=== PATIENT | male | born 1955 | race Caucasian/White ===

== ENCOUNTER 2016-02-19 18:23 | Emergency (ER) | payer MEDICARE, MEDICAID ==
--- NOTE | 2016-02-19 20:48 | ER Document Report ---
ED General - General Chief Complaint: Facial Injury Stated Complaint: FALL Notes: Patient is a 60-year-old male with past medical history of prior CVA, encephalopathy, chronic alcoholism, who lives in an assisted living facility who presents after a mechanical fall today. States that he tripped and fell trying to get out of bed. He did strike the left side of his head but denies loss of consciousness, vomiting, or altered mental status. Does note a constant , dull pain to the left forehead. Nothing improves or worsens the pain. Patient has been seen in the emergency department on 3 prior occasions the last 4 months for similar falls. He denies any syncope associated with today's episode. He is not notified his primary care physician regarding today's fall. Denies any pain in any location at this time beyond his forehead. TRAVEL OUTSIDE OF THE [place] IN LAST 30 DAYS: No - Related Data Allergies/Adverse Reactions: No Known Allergies Allergy (Verified 06/16/15 20:23) Past Medical History - General Information source: Patient - Social History Smoking Status: Former Smoker Frequency of alcohol use: Occasional Drug Abuse: None Family History: Reviewed & Not Pertinent - Past Medical History Cardiac Medical History: Reports: Hx Hypercholesterolemia, Hx Hypertension Neurological Medical History: Reports: Hx Cerebrovascular Accident - Left-sided hypertensive intracranial hemorrhage on 10/15/2010 GI Medical History: Reports: Hx Gastroesophageal Reflux Disease Psychiatric Medical History: Reports: Hx Dementia Past Surgical History: Reports: Hx Abdominal Surgery - Hiatal hernia, Hx Vascular Surgery - Right carotid - Immunizations Hx Diphtheria, Pertussis, Tetanus Vaccination: Yes - utd Review of Systems - Review of Systems Notes: Constitutional: Negative for fever. Eyes: Negative for visual changes. ENT: Negative for facial injury Cardiovascular: Negative for chest injury. Respiratory: Negative for shortness of breath. Gastrointestinal: Negative for abdominal injury. Genitourinary: Negative for genital injury Musculoskeletal: Negative for back injury. Skin: Positive for laceration/abrasions. Neurological: Positive for head injury. Physical Exam - Vital signs Vitals: Temp Pulse Resp BP Pulse Ox 99.1 F 42 L 20 102/58 L 94 02/19/16 18:30 02/19/16 18:30 02/19/16 18:30 02/19/16 18:30 02/19/16 18:30 Interpretation: Bradycardic Notes: PHYSICAL EXAMINATION: GENERAL: Well-appearing, no acute distress. HEAD: Irregular flap type laceration over the left frontal scalp, normocephalic. EYES: Pupils equal round and reactive to light, extraocular movements intact, sclera anicteric, conjunctiva are normal. ENT: nares patent, no oral pharyngeal trauma. No hemotympanum, no Cheatham's sign , no raccoon eyes. NECK: No midline cervical spine tenderness. Patient able to move their head to 45 bilaterally without any discomfort. LUNGS: Breath sounds clear to auscultation bilaterally and equal. No wheezes rales or rhonchi. HEART: Regular rate and rhythm without murmurs. CHEST WALL: No ecchymosis over the chest wall. ABDOMEN: Soft, nontender, normoactive bowel sounds. No guarding, no rebound. No seatbelt sign. EXTREMITIES: Normal range of motion, no pitting or edema. No long bone deformities. BACK: No midline spinal tenderness, step-offs, or deformities. NEUROLOGICAL: Face symmetric. Tongue protrudes midline. Extraocular motions intact. Pupils are 2 mm and equally reactive. Slow speech which patient states is baseline. 5 out of 5 strength in both the distal and proximal upper and lower extremities bilaterally. Sensation is grossly intact throughout. PSYCH: Normal mood, normal affect. SKIN: Warm, Dry, normal turgor, laceration as above Course - Re-evaluation Re-evalutation: 02/19/16 22:55 Presentation of a well appearing elderly patient in no acute distress, vitals within normal limits after a mechanical mechanical fall. Patient denies a syncopal episode as the cause for today's fall. No focal neurologic deficits on exam, no evidence of basilar skull fracture on exam without evidence of hemotympanum, raccoon eyes, or periauricular hematoma. No papilledema. Patient is not on anticoagulation. GCS is 15. No loss of consciousness. No episodes of vomiting. However, patient is mildly intoxicated and therefore a CT of the head has been obtained which is negative for any acute intracranial bleed.. Patient denies any neck pain and is negative by Nexus criteria. CT of the neck was therefore not obtained. No indication for further imaging of the cervical spine. Patient has no focal deformities or limited range of motion in any joint space. Chest and abdominal exam are benign without any focal tenderness, shortness of breath, or bruising over the chest or abdominal wall. Patient has no flank tenderness. There is no obvious findings on trauma exam today and therefore no further imaging or evaluation will be obtained at this time. At this time will discharge with return precautions and follow-up recommendations. Verbal discharge instructions given a the bedside and opportunity for questions given. Medication warnings reviewed. Patient is in agreement with this plan and has verbalized understanding of return precautions and the need for primary care follow-up in the next 24-72 hours. - Vital Signs Vital signs: Temp Pulse Resp BP Pulse Ox 99.1 F 42 L 16 133/77 H 94 02/19/16 18:30 02/19/16 18:30 02/19/16 19:01 02/19/16 19:01 02/19/16 19:01 - Diagnostic Test Radiology reviewed: Image reviewed, Reports reviewed Radiology results interpreted by me: 02/19/16 22:56 CT the head: No acute intracranial bleed Procedures - Laceration/Wound Repair Left Face Wound length (cm): 2 Wound's Depth, Shape: Superficial Laceration pre-procedure: Sterile PPE donned Wound explored: Clean Wound Debrided: Minimal Wound Repaired With: Dermabond Post-procedure NV exam normal: Yes Complications: No Discharge - Discharge Clinical Impression: Head trauma Qualifiers: Encounter type: initial encounter Qualified Code(s): S09.90XA - Unspecified injury of head, initial encounter Forehead laceration Qualifiers: Encounter type: initial encounter Qualified Code(s): S01.81XA - Laceration without foreign body of other part of head, initial encounter Fall Qualifiers: Encounter type: initial encounter Qualified Code(s): W19.XXXA - Unspecified fall, initial encounter Condition: Good Disposition: HOME, SELF-CARE Additional Instructions: You have likely sustained a contusion (bruise) to your head. If you had a CT scan done, it did not show any evidence of serious injury or bleeding. Symptoms to expect from a concussion include nausea, mild to moderate headache, difficulty concentrating or sleeping, and mild lightheadedness. These symptoms should improve over the next few days to weeks. Return to the emergency department or follow-up with your primary care doctor if your symptoms are not improving over this time. Signs of a more serious head injury include vomiting , severe headache, excessive sleepiness or confusion, and weakness or numbness in your face, arms or legs. Return immediately to the Emergency Department if you experience any of these more concerning symptoms. Rest, avoid strenuous physical or mental activity, and avoid activities that could potentially result in another head injury until all your symptoms from this head injury are completely resolved for at least 2-3 weeks. If you participate in sports, get cleared by your doctor or business trainer before returning to play. You may take ibuprofen or acetaminophen over the counter according to label instructions for mild headache or scalp soreness. The wound has been closed with glue. Please do not pick at the at the wound. Do not cover it with any kind of antibiotic ointment as this can cause the glue to loosen. Return immediately if you develop spreading redness around the wound , pus from the wound, worsening pain, or a fever of >100.4. Keep the area clean and dry. Referrals: COURTNEY PATEL MD [Primary Care Provider] - Follow up in 3-5 days
[2016-02-19 22:56] VITALS: BP 164/80
== END 2016-02-19 22:57 | disposition home or self-care (01) ==
LOC: ER 18:23
DX: S01.81XA Laceration without foreign body of other part of head, initial encounter (principal); W19.XXXA Unspecified fall, initial encounter; Y93.89 Activity, other specified; Y92.092 Bedroom in other non-institutional residence as the place of occurrence of the external cause; F10.229 Alcohol dependence with intoxication, unspecified; I10 Essential (primary) hypertension; R00.1 Bradycardia, unspecified; Z87.891 Personal history of nicotine dependence
CPT/HCPCS: 70450; 99284

== ENCOUNTER 2016-09-29 12:53 | Emergency (ER) | payer MEDICARE, MEDICAID ==
[2016-09-29] MEDS ORDERED: LIDOCAINE 1% INJ-PF (10 MG/ML) 30 ML SDV INJ ONE (13:01)
--- NOTE | 2016-09-29 13:16 | ER Document Report ---
ED Fall - General Mode of Arrival: Medic Information source: Emergency Med Personnel TRAVEL OUTSIDE OF THE [place] IN LAST 30 DAYS: No - HPI Occurred: Just prior to arrival Location of injury/pain: Face, Head <WILMAR BORREGO - Last Filed: 09/29/16 13:22> <TOMA GUERRA - Last Filed: 09/29/16 15:26> - General Stated Complaint: FALL,HEAD INJURY Time Seen by Provider: 09/29/16 12:54 Notes: Patient is a 61 year old male who presents to the ED via EMS after a fall into the door jam. EMS states patient was getting out of bed when he fell into the door jam, their was blood on the door handle and a splintered and jagged area of wood on the door jam right where he hit. Patient has a history of alcoholism. Patients head hurts where he hit it. (WILMAR BORREGO) - Related data Allergies/Adverse Reactions: No Known Allergies Allergy (Verified 06/16/15 20:23) Past Medical History - General Information source: Patient - Social History Smoking Status: Unknown if Ever Smoked Family History: Reviewed & Not Pertinent - Past Medical History Cardiac Medical History: Reports: Hx Hypercholesterolemia, Hx Hypertension Neurological Medical History: Reports: Hx Cerebrovascular Accident - Left-sided hypertensive intracranial hemorrhage on 10/15/2010 GI Medical History: Reports: Hx Gastroesophageal Reflux Disease Psychiatric Medical History: Reports: Hx Dementia Past Surgical History: Reports: Hx Abdominal Surgery - Hiatal hernia, Hx Vascular Surgery - Right carotid - Immunizations Hx Diphtheria, Pertussis, Tetanus Vaccination: Yes - utd <WILMAR BORREGO - Last Filed: 09/29/16 13:22> Review of Systems - Review of Systems Constitutional: No symptoms reported EENT: See HPI, Other - head pain and laceration Cardiovascular: No symptoms reported Respiratory: No symptoms reported Gastrointestinal: No symptoms reported Genitourinary: No symptoms reported Male Genitourinary: No symptoms reported Musculoskeletal: No symptoms reported Skin: See HPI, Other - laceration to right head Hematologic/Lymphatic: No symptoms reported Neurological/Psychological: No symptoms reported <WILMAR BORREGO - Last Filed: 09/29/16 13:22> Physical Exam - General General appearance: Alert - HEENT Head: Normocephalic, Other - large laceration to right lateral supraorbital forehead Eyes: Normal Pupils: PERRL - Respiratory Respiratory status: No respiratory distress Breath sounds: Normal - Cardiovascular Rhythm: Regular Heart sounds: Normal auscultation Murmur: No - Abdominal Inspection: Normal Distension: No distension Bowel sounds: Normal Tenderness: Nontender - Back Back: Normal - Extremities General upper extremity: Other - chronic right side contractures, see skin irregularity exam General lower extremity: Other - chronic right side contractures. No: Edema - Neurological Cognition: Other - alert and oriented per baseline - Skin Skin Temperature: Warm Skin Moisture: Dry Skin Color: Normal Skin irregularity: other - large laceration on right lateral supraorbital forehead, skin tear that is bandaged on right elbow <WILMAR BORREGO - Last Filed: 09/29/16 13:22> Course <WILMAR BORREGO - Last Filed: 09/29/16 13:22> - EKG Interpretation by [facility] EKG shows normal: Christine, Intervals, QRS Complexes. abnormal: ST-T Waves - Minimal anterior ST elevation Rate: Bradycardia - 45 Rhythm: Other - Junctional escape rhythm When compared to previous EKG there are: No significant change <TOMA GUERRA - Last Filed: 09/29/16 15:26> - Re-evaluation Re-evalutation: 09/29/16 14:49 PROCEEDURE: The patient has a crush shearing type laceration to his right supraorbital lateral forehead region. It extends 5 cm from top to bottom with a 1 cm split coming off the lower half of the wound. There is also a 2 cm laceration in the crushed tissue running perpendicular and medially from the upper half but not adjoining the wound, The skin was prepped with Hibiclens. The wound was copiously irrigated with 30 mL's of normal saline. The skin was anesthetized with 7 mL's of 1% lidocaine, this was used because the hospital has been out of lidocaine with epinephrine for quite some time. The wound was explored with two thirds of the long axis of the wound going down through muscle. The subcutaneous wound area was approximated using #2 4-0 Vicryl sutures and this helped achieve hemostasis for the most part from this wound that had been pouring out blood when it was not compressed. The skin was then closed with a total of #19 5-0 nylon sutures. A sterile compression dressing was applied. (TOMA GUERRA) Discharge <WILMAR BORREGO - Last Filed: 09/29/16 13:22> <TOMA GUERRA - Last Filed: 09/29/16 15:26> - Discharge Clinical Impression: Frequent falls Laceration of right side of forehead with complication Qualifiers: Encounter type: initial encounter Qualified Code(s): S01.81XA - Laceration without foreign body of other part of head, initial encounter Condition: Stable Disposition: HOME, SELF-CARE Additional Instructions: Laceration Care: Your laceration has been sutured to keep the skin edges aligned during healing. The time of suture removal depends on the nature and location of your cut. Please follow the care instructions the doctor has outlined for you and return for further care, according to the schedule you've been given. Keep the wound and dressing clean. Unless you were told otherwise, you may shower daily, blotting the wound dry with a clean, unused towel. At other times, If the dressing gets wet or blood soaked, remove it and blot the wound dry, then reapply a new dressing. Unless you were instructed otherwise, dressings should be changed at least daily. If any signs of infection occur (swelling, redness, increasing tenderness, red streaks, tender lumps in the armpit or groin above the laceration, or fever) , see the doctor immediately. RETURN IN ONE WEEK FOR SUTURE REMOVAL. RETURN SOONER IF ANY SIGNS OF INFECTION. RETURN TO THE EMERGENCY ROOM IF ANY NEW OR WORSENING SYMPTOMS. Scribe Attestation: 09/29/16 15:26 I personally performed the services described in the documentation, reviewed and edited the documentation which was dictated to the scribe in my presence, and it accurately records my words and actions. (TOMA GUERRA) Scribe Documentation - Scribe Written by Deirdre:: deirdre Solano, 09/29/2016, 1311 acting as scribe for :: Josselyn <WILMAR BORREGO - Last Filed: 09/29/16 13:22>
[2016-09-29 16:03] VITALS: BP 167/91
--- NOTE | 2016-09-29 20:31 | EKG REPORT ---
SEVERITY:- BORDERLINE ECG - SINUS BRADYCARDIA MINIMAL ST ELEVATION, ANTERIOR LEADS : Confirmed by: Scott Luu MD 29-Sep-2016 20:29:57
--- NOTE | 2016-09-30 15:01 | RADIOLOGY REPORT (SQ) ---
EXAM DESCRIPTION: CT CERVICAL SPINE WITHOUT COMPLETED DATE/TIME: 09/29/2016, 1313 hours REASON FOR STUDY: Fall, injury, pain COMPARISON: CT cervical spine 01/20/2016 TECHNIQUE: The contrasted CT cervical spine was performed, reviewed at bone and soft tissue windows with sagittal and coronal reconstructions. RADIATION DOSE: 18.2 mGy LIMITATIONS: None FINDINGS: Grossly normal bone density. There is very mild convex leftward cervical curvature, and straightening of the cervical lordosis pro bably due to muscle spasm. No acute fracture is identified. No prevertebral soft tissue swelling. Calcified left carotid bifurcation, surgical clips at the righ t bifurcation probably post endarterectomy. Lung apices demonstrate biapical pleural-parenchymal scarring. There is degenerative disc change with mild left foraminal narrowing at C2-3. At C3-4 and C4-5 minimal posterior disc bulging is present without central stenosis. Moderate bilate ral foraminal narrowing from facet and uncovertebral hypertrophy. At C5-6 and C6-7, broad diffuse posterior disc bulge and bony spurring is present with mild central c anal stenosis and high-grade bilateral foraminal narrowing. IMPRESSION: No acute fracture or malalignment.
--- NOTE | 2016-09-30 15:02 | RADIOLOGY REPORT (SQ) ---
EXAM DESCRIPTION: CT HEAD WITHOUT COMPLETED DATE/TIME: 09/29/2016, 1311 hours REASON FOR STUDY: Palmar injury pain COMPARISON: [address] exams since 10/14/2010, most recently 02/19/2016 MRI brain 07/29/2015 TECHNIQUE: Noncontrast CT brain was performed, reviewed in brain, subdural, and bone windows. RADIATION DOSE: 64.6 mGy LIMITATIONS: Motion artifact FINDINGS: On images without motion artifact, there is no definite CT evidence of acute intracranial hemorrhage, acute large territory ischemic change, mass effect, or midline shift. There are multiple old infarcts in the bilateral basal ganglia and left thalamus, with moderate bifro ntal and biparietal chronic small vessel ischemic change. There is a soft tissue laceration over the right forehead. No retained radiopaque foreign body. No underlying skull fracture or intracranial hemorrhage. Opacified bilateral ethmoid air cells likely from pre-existing sinus disease. Mucous membrane thicke jaida bilateral maxillary sinuses. IMPRESSION: No skull fracture No acute intracranial changes. Right frontal scalp laceration
== END 2016-09-29 17:45 | disposition home or self-care (01) ==
LOC: ER 12:53
PROC: 0JQ10ZZ Repair Face Subcutaneous Tissue and Fascia, Open Approach (ICD-10-PCS; principal; 2016-09-29)
DX: S09.12XA Laceration of muscle and tendon of head, initial encounter (principal); S01.81XA Laceration without foreign body of other part of head, initial encounter; S51.011A Laceration without foreign body of right elbow, initial encounter; W22.8XXA Striking against or struck by other objects, initial encounter; Y93.89 Activity, other specified; Y92.193 Bedroom in other specified residential institution as the place of occurrence of the external cause; R51 Headache; I10 Essential (primary) hypertension; R29.6 Repeated falls
CPT/HCPCS: 70450; 72125; 93005; 93010; 99284

== ENCOUNTER 2017-03-21 03:38 | Emergency (ER) | payer MEDICARE, MEDICAID ==
[2017-03-21] MEDS ORDERED: NORMAL SALINE 1000 ML 1,000 ML IV PRN ×2 (03:48→03:49)
--- NOTE | 2017-03-21 04:31 | RADIOLOGY REPORT (SQ) ---
EXAM DESCRIPTION: CHEST SINGLE VIEW CLINICAL HISTORY: fever COMPARISON: 09/22/2015 FINDINGS: Single frontal view of the chest. Atherosclerotic calcification of the thoracic aorta. Heart is not enlarged. Leads overlie the chest. No consolidation, pneumothorax, or pleural effusion. No acute osseous abnormalities identified. Upper abdominal soft tissues are unremarkable. IMPRESSION: 1. No acute pulmonary process identified.
[2017-03-21 04:47] VITALS: BP 112/64
[2017-03-21 04:47] LABS: AMORPHOUS SEDIMENT,URINE TRACE /HPF; APPEARANCE,URINE SLIGHTLY-CLOUDY; BILIRUBIN,URINE NEGATIVE (NEGATIVE); GLUCOSE, URINE NEGATIVE (NEGATIVE); KETONES,URINE TRACE mg/dL (NEGATIVE); LEUKOCYTE ESTERASE,URINE NEGATIVE (NEGATIVE); NITRITE,URINE NEGATIVE (NEGATIVE); PROTEIN,URINE 30 mg/dL (NEGATIVE); URINE SPECIFIC GRAVITY 1.028
[2017-03-21 04:55] LABS: COLOR,URINE DARK YELLOW
[2017-03-21 04:58] LABS: VENOUS BLOOD BASE EXCESS 1.6 mmol/L; VENOUS BLOOD HCO3 25.3 mmol/L (20-32); VENOUS BLOOD PCO2 37.4 mmHg (35-63); VENOUS BLOOD PH 7.45 (7.30-7.42)
[2017-03-21 04:59] LABS: HEMATOCRIT 34.7 % (37.9-51.0); HEMOGLOBIN 12.1 g/dL (13.5-17.0); MEAN CORPUSCULAR HEMOGLOBIN 31.8 pg (27.0-33.4); MEAN CORPUSCULAR HGB CONC 34.7 g/dL (32.0-36.0); MEAN CORPUSCULAR VOLUME 92 fl (80-97); PLATELET COUNT 301 10^3/uL (150-450); RED BLOOD COUNT 3.79 10^6/uL (4.35-5.55); WHITE BLOOD COUNT 17.2 10^3/uL (4.0-10.5)
[2017-03-21 05:03] LABS: INTERNATIONAL RATION (INR) 1.11; PROTHROMBIN TIME 15.1 SEC (11.4-15.4)
[2017-03-21 05:27] LABS: ALANINE AMINOTRANSFERASE 34 U/L (21-72); ALBUMIN 3.7 g/dL (3.5-5.0); ALKALINE PHOSPHATASE 127 U/L (38-126); ANION GAP 9 (5-19); ASPARTATE AMINO TRANSFERASE 103 U/L (17-59); BILIRUBIN,DIRECT 0.5 mg/dL (0.0-0.4); BILIRUBIN,TOTAL 0.5 mg/dL (0.2-1.3); BLOOD UREA NITROGEN 25 mg/dL (7-20); CALCIUM 8.9 mg/dL (8.4-10.2); CARBON DIOXIDE 27 mmol/L (22-30); CHLORIDE 100 mmol/L (98-107); GLUCOSE 189 mg/dL (75-110); POTASSIUM 3.6 mmol/L (3.6-5.0); SODIUM 135.5 mmol/L (137-145); TOTAL PROTEIN 7.2 g/dL (6.3-8.2)
[2017-03-21 05:36] LABS: ABSOLUTE LYMPHOCYTES# (MANUAL) 1.2 10^3/uL (0.5-4.7); ABSOLUTE MONOCYTES # (MANUAL) 0.3 10^3/uL (0.1-1.4); ABSOLUTE NEUTROPHILS# (MANUAL) 15.7 10^3/uL (1.7-8.2); BAND NEUTROPHILS % (MANUAL) 5 % (3-5); BASOPHILS % (MANUAL) 0 % (0-2); EOSINOPHILS % (MANUAL) 0 % (0-6); LYMPHOCYTES % (MANUAL) 4 % (13-45); MONOCYTES % (MANUAL) 2 % (3-13); SEGMENTED NEUTROPHILS % (MAN) 86 % (42-78); TOTAL CELLS COUNTED 100
[2017-03-21 05:37] LABS: PLATELET COMMENT ADEQUATE; PLATELET LARGE PRESENT
[2017-03-21 05:38] LABS: RBC MORPHOLOGY COMMENT NORMO-CYTIC/CHROMIC; TOXIC GRANULATION 1+; TOXIC VACUOLATION PRESENT
[2017-03-21 05:58] LABS: A TYPE INFLUENZA AG NEGATIVE (NEGATIVE); B INFLUENZA AG NEGATIVE (NEGATIVE)
--- NOTE | 2017-03-21 07:05 | ER Document Report ---
ED General - General Chief Complaint: Fever Stated Complaint: FEVER Time Seen by Provider: 03/21/17 06:09 TRAVEL OUTSIDE OF THE [place] IN LAST 30 DAYS: No - HPI Patient complains to provider of: Fever Notes: Patient coming in for fever. Most of the HPI is obtained from nursing staff states EMS was called to the patient's assisted living apparently no Tylenol have been given by the4 fever ongoing for 3 days. Patient has a fever of 103 upon arrival assisted living facility patient did receive Tylenol here. Transported patient was reported to have baseline mental status per EMS. Upon my evaluation patient is sleeping arousable and will answer simple yes/no questions. Patient does not complain of any pain in his chest abdomen denies any diarrhea denies any shortness of breath or cough. Denies any pain in his chest. Denies any pain in his head or in his neck. 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 Patient was to be resting comfortably upon my evaluation - Related Data Allergies/Adverse Reactions: No Known Allergies Allergy (Verified 06/16/15 20:23) Past Medical History - Social History Smoking Status: Never Smoker Chew tobacco use (# tins/day): No Frequency of alcohol use: former Family History: Reviewed & Not Pertinent Patient has suicidal ideation: No Patient has homicidal ideation: No - Past Medical History Cardiac Medical History: Reports: Hx Hypercholesterolemia, Hx Hypertension Neurological Medical History: Reports: Hx Cerebrovascular Accident - Left-sided hypertensive intracranial hemorrhage on 10/15/2010 Renal/ Medical History: Denies: Hx Peritoneal Dialysis GI Medical History: Reports: Hx Gastroesophageal Reflux Disease Psychiatric Medical History: Reports: Hx Dementia Past Surgical History: Reports: Hx Abdominal Surgery - Hiatal hernia, Hx Vascular Surgery - Right carotid - Immunizations Hx Diphtheria, Pertussis, Tetanus Vaccination: Yes - utd Review of Systems - Review of Systems Constitutional: Fever EENT: No symptoms reported Cardiovascular: No symptoms reported Respiratory: No symptoms reported Gastrointestinal: No symptoms reported Genitourinary: No symptoms reported Male Genitourinary: No symptoms reported Musculoskeletal: No symptoms reported Skin: No symptoms reported Hematologic/Lymphatic: No symptoms reported Neurological/Psychological: No symptoms reported Physical Exam - Vital signs Vitals: Temp 102.0 F H 03/21/17 03:42 Interpretation: Normal - General General appearance: Appears well, Alert - HEENT Head: Normocephalic, Atraumatic Eyes: Normal Conjunctiva: Normal Cornea: Normal Extraocular movements intact: Yes Pupils: PERRL Ears: Normal External canal: Normal Tympanic membrane: Normal Sinus: Normal Nasal: Normal Neck: Normal Notes: Patient with poor dentition however no signs of overt dental abscess no gingival cellulitis. - Respiratory Respiratory status: No respiratory distress Chest status: Nontender Breath sounds: Normal Chest palpation: Normal - Cardiovascular Rhythm: Regular Heart sounds: Normal auscultation Murmur: No - Abdominal Inspection: Normal Distension: No distension Bowel sounds: Normal Tenderness: Nontender Organomegaly: No organomegaly - Rectal Notes: No signs of open wounds on examination of the buttocks. No signs of open wounds in the lower back. No cellulitic process - Genitourinary Inspection: Normal Tenderness: Nontender Cremasteric reflex: Normal Scrotum: Normal - Back Back: Normal, Nontender - Extremities General upper extremity: Normal inspection, Nontender, Normal color, Normal temperature, Other - No signs of open wounds infected wounds. No: Normal ROM - Condition traction of the right upper extremity with some excoriations no signs of skin infection. Left looks to be unaffected. General lower extremity: Normal inspection, Nontender, Normal color, Normal temperature, Other - No signs of decubitus or wounds.. No: Normal ROM - Contractions of the lower extremities. Patient able to move his feet pulses intact - Neurological Neuro grossly intact: Yes Cognition: Normal Lyles Coma Scale Eye Opening: Spontaneous Mary Coma Scale Verbal: Oriented Lyles Coma Scale Motor: Obeys Commands Mary Coma Scale Total: 15 Speech: Normal Sensory: Normal - Skin Skin Temperature: Warm Skin Moisture: Dry Skin Color: Normal Course - Re-evaluation Re-evalutation: 03/21/17 07:04 Laboratory studies showed a leukocytosis with left shift. Although the examination and chest x-ray urinalysis did not indicate source of infection. Patient is negative for flu. No diarrhea doubt this time any C. difficile. Blood cultures and urine cultures were sent. My plan is to discuss this with PCP I do not think at this time patient would need a CT scan of his abdomen is that his abdomen is soft nontender lactic acid is negative. Also think patient will need to undergo any lumbar puncture is that he is awake able to answer questions fever ongoing for the last 3 days. Denies any head pain neck pain. 03/21/17 08:[address] Bermudez at this time agrees with assessment workup. More likely possibly a viral illness blood culture and urine cultures have been sent. Patient's vital signs are otherwise stable patient's afebrile now. Reevaluation patient still answering simple questions and has no other complaints. Will discharge patient back to the [facility] house PCP agrees this plan will continue to follow cultures. - Vital Signs Vital signs: Temp Pulse Resp BP Pulse Ox 102.0 F H 18 112/64 94 03/21/17 03:42 03/21/17 07:00 03/21/17 04:01 03/21/17 07:00 - Laboratory Result Diagrams: 03/21/17 04:30 03/21/17 04:30 Laboratory results interpreted by me: 03/21/17 03/21/17 03/21/17 04:24 04:30 04:30 WBC 17.2 H RBC 3.79 L Hgb 12.1 L Hct 34.7 L Seg Neuts % (Manual) 86 H Lymphocytes % (Manual) 4 L Monocytes % (Manual) 2 L Abs Neuts (Manual) 15.7 H VBG pH Sodium 135.5 L BUN 25 H Glucose 189 H POC Glucose Direct Bilirubin 0.5 H AST 103 H Alkaline Phosphatase 127 H Urine Protein 30 H Urine Ketones TRACE H Urine Blood SMALL H Urine Urobilinogen 4.0 H 03/21/17 03/21/17 04:30 04:39 WBC RBC Hgb Hct Seg Neuts % (Manual) Lymphocytes % (Manual) Monocytes % (Manual) Abs Neuts (Manual) VBG pH 7.45 H Sodium BUN Glucose POC Glucose 179 H Direct Bilirubin AST Alkaline Phosphatase Urine Protein Urine Ketones Urine Blood Urine Urobilinogen Discharge - Discharge Clinical Impression: Fever Qualifiers: Fever type: post-vaccination Qualified Code(s): R50.83 - Postvaccination fever Instructions: Fever ([facility]) Additional Instructions: Please continue to give Tylenol and Motrin for fever control. Workup today did not show any signs of infection early UTI no pneumonia there is no lesions on the patient's body that would cause an infection there is no signs of cellulitis. Laboratory showed an elevation of white count which can also be caused by a viral illness. Patient was negative for influenza a and B however there are other viruses going around the community right now that we cannot test for. Recommending keep the patient well-hydrated with oral fluids. I discussed with PCP Dr. Bermudez agrees with discharge back to facility will continue to follow urine culture and blood cultures are performed here in ER. Patient should return to ER if symptoms worsen or follow-up with his PCP in the next 48 hours Prescriptions: Acetaminophen [Tylenol] 650 mg PO Q4 PRN #60 tablet PRN Reason:
--- NOTE | 2017-03-21 08:37 | EKG REPORT ---
SEVERITY:- ABNORMAL ECG - SINUS RHYTHM ATRIAL PREMATURE COMPLEXES NONSPECIFIC T ABNORMALITIES, LATERAL LEADS PROLONGED QT INTERVAL : Confirmed by: Jem Barros 21-Mar-2017 08:36:36
--- NOTE | 2017-03-22 01:26 | ER Document Report ---
ED Medical Screen (RME) - General Chief Complaint: Fever Stated Complaint: FEVER Time Seen by Provider: 03/21/17 06:09 Notes: I was handed culture results from this patient. Showed one bottle gram- positive cocci preliminary. I reviewed his chart. Concern for sepsis. Instructed charge nurse Claudia to call facility and bring the patient back to the ER. TRAVEL OUTSIDE OF THE [place] IN LAST 30 DAYS: No - Related Data Allergies/Adverse Reactions: No Known Allergies Allergy (Verified 06/16/15 20:23) Past Medical History - Social History Chew tobacco use (# tins/day): No Frequency of alcohol use: former - Past Medical History Cardiac Medical History: Reports: Hx Hypercholesterolemia, Hx Hypertension Neurological Medical History: Reports: Hx Cerebrovascular Accident - Left-sided hypertensive intracranial hemorrhage on 10/15/2010 Renal/ Medical History: Denies: Hx Peritoneal Dialysis GI Medical History: Reports: Hx Gastroesophageal Reflux Disease Psychiatric Medical History: Reports: Hx Dementia Past Surgical History: Reports: Hx Abdominal Surgery - Hiatal hernia, Hx Vascular Surgery - Right carotid - Immunizations Hx Diphtheria, Pertussis, Tetanus Vaccination: Yes - utd Physical Exam - Vital signs Vitals: Temp 102.0 F H 03/21/17 03:42 Course - Vital Signs Vital signs: Temp Pulse Resp BP Pulse Ox 102.0 F H 18 112/64 94 03/21/17 03:42 03/21/17 08:47 03/21/17 04:01 03/21/17 08:47 - Laboratory Result Diagrams: 03/21/17 04:30 03/21/17 04:30 Laboratory results interpreted by me: 03/21/17 03/21/17 03/21/17 04:24 04:30 04:30 WBC 17.2 H RBC 3.79 L Hgb 12.1 L Hct 34.7 L Seg Neuts % (Manual) 86 H Lymphocytes % (Manual) 4 L Monocytes % (Manual) 2 L Abs Neuts (Manual) 15.7 H VBG pH Sodium 135.5 L BUN 25 H Glucose 189 H POC Glucose Direct Bilirubin 0.5 H AST 103 H Alkaline Phosphatase 127 H Urine Protein 30 H Urine Ketones TRACE H Urine Blood SMALL H Urine Urobilinogen 4.0 H 03/21/17 03/21/17 04:30 04:39 WBC RBC Hgb Hct Seg Neuts % (Manual) Lymphocytes % (Manual) Monocytes % (Manual) Abs Neuts (Manual) VBG pH 7.45 H Sodium BUN Glucose POC Glucose 179 H Direct Bilirubin AST Alkaline Phosphatase Urine Protein Urine Ketones Urine Blood Urine Urobilinogen Doctor's Discharge - Discharge Clinical Impression: Fever Qualifiers: Fever type: post-vaccination Qualified Code(s): R50.83 - Postvaccination fever Condition: Fair Disposition: HOME-ASSISTED LIVING Instructions: Fever ([facility]) Additional Instructions: Please continue to give Tylenol and Motrin for fever control. Workup today did not show any signs of infection early UTI no pneumonia there is no lesions on the patient's body that would cause an infection there is no signs of cellulitis. Laboratory showed an elevation of white count which can also be caused by a viral illness. Patient was negative for influenza a and B however there are other viruses going around the community right now that we cannot test for. Recommending keep the patient well-hydrated with oral fluids. I discussed with PCP Dr. Bermudez agrees with discharge back to facility will continue to follow urine culture and blood cultures are performed here in ER. Patient should return to ER if symptoms worsen or follow-up with his PCP in the next 48 hours Prescriptions: Acetaminophen [Tylenol] 650 mg PO Q4 PRN #60 tablet PRN Reason:
== END 2017-03-21 09:40 | disposition home health service (06) ==
LOC: ER 03:38
DX: R50.83 Postvaccination fever (principal); D72.829 Elevated white blood cell count, unspecified; I10 Essential (primary) hypertension
CPT/HCPCS: 93005; 99284; 96360; 96361; 51702; 36415; 87040; 87086; 82962; 85025; 85610; 87077; 80053; 81001; 82803; 83605; 87804; 71045; 93010; J7030; 87186

== ENCOUNTER 2017-03-22 02:17 | Inpatient (IN) | payer MEDICARE, MEDICAID ==
[2017-03-22] MEDS ORDERED: NORMAL SALINE 1000 ML 1,000 ML IV ONE (02:22)
--- NOTE | 2017-03-22 02:25 | ER Document Report ---
ED General - General Stated Complaint: REEVALUATION FOR BLOOD CULTURES Time Seen by Provider: 03/22/17 02:21 Notes: This is a 61-year-old male [facility] resident with severe dementia who was seen yesterday in the ED for fever. Because I reviewed his culture results that he had positive gram-positive cocci on his blood culture. He was worked up extensively yesterday was noted to have leukocytosis but no lactic elevation. His flu was negative. His mental status was apparently at baseline at that point. I have very little information available from the facility but EMS told me that the patient's vitals are normal. He cannot give a history and is difficult to arouse. TRAVEL OUTSIDE OF THE [place] IN LAST 30 DAYS: No - Related Data Allergies/Adverse Reactions: No Known Allergies Allergy (Verified 06/16/15 20:23) Past Medical History - General Information source: [facility] Records - Social History Smoking Status: Unknown if Ever Smoked Family History: Reviewed & Not Pertinent - Past Medical History Cardiac Medical History: Reports: Hx Hypercholesterolemia, Hx Hypertension Neurological Medical History: Reports: Hx Cerebrovascular Accident - Left-sided hypertensive intracranial hemorrhage on 10/15/2010 Renal/ Medical History: Denies: Hx Peritoneal Dialysis GI Medical History: Reports: Hx Gastroesophageal Reflux Disease Psychiatric Medical History: Reports: Hx Dementia Past Surgical History: Reports: Hx Abdominal Surgery - Hiatal hernia, Hx Vascular Surgery - Right carotid - Immunizations Hx Diphtheria, Pertussis, Tetanus Vaccination: Yes - utd Review of Systems - Review of Systems Notes: REVIEW OF SYSTEMS Not obtained secondary to patient dementia PHYSICAL EXAMINATION General: Somnolent, appears poorly groomed Head: Atraumatic, normocephalic ENT: Mouth normal, oropharynx very dry, poor dentition, n Eyes: Bilateral eye exudates without conjunctival injection Neck: No JVD, supple, no guarding CVS: Normal rate, regular rhythm, no murmurs Resp: No resp distress, equal and normal breath sounds bilaterally GI: Nondistended, soft, no tenderness to palpation, no rebound or guarding Ext: No deformities, no edema, normal range of motion in upper and lower ext Back: No CVA or midline TTP Skin: No rash, warm Lymphatic: No lymphadeopathy noted Neuro: Somnolent. Opens eyes to voice. Nonverbal. Bilateral contractures not following commands. -: Yes ROS unobtainable due to patient's medical condition Course - Re-evaluation Re-evalutation: 03/22/17 02:24 Frail demented 61-year-old male presents after a visit for fever during which she was diagnosed with viral illness. Positive blood culture. Appears quite dehydrated. Differential includes sepsis. Source was not identified yesterday. Has no indwelling lines. We will repeat cultures and lactic and labs. We will give empiric IV fluid. 03/22/17 04:46 Lactic normal. Leukocytosis slightly improved. Patient slightly improved with IV fluid although there is no acute kidney injury on his labs. Spoke with Dr. Patel he maintains that this is probably contamination but still asked me to give antibiotics and will admit the patient to [facility] overnight.. - Laboratory Result Diagrams: 03/22/17 02:35 03/22/17 04:05 Laboratory results interpreted by me: 03/22/17 03/22/17 02:35 04:05 WBC 15.1 H RBC 3.64 L Hgb 11.7 L Hct 33.4 L Seg Neutrophils % 84.2 H Lymphocytes % 10.4 L Absolute Neutrophils 12.8 H Glucose 120 H Critical Care Note - Critical Care Note Total time excluding time spent on procedures (mins): 32 Comments: The above patient is critically ill. Not including procedures, but including direct re-evaluations, speaking with patient and/or consultants, interpreting results, and documenting, I spent the total amount of minute listed listed above on critical care time Discharge - Discharge Clinical Impression: Blood culture positive for microorganism Condition: Good Disposition: ADMITTED INPATIENT Admitting Provider: Hospitalist Unit Admitted: Medical Floor Referrals: COURTNEY PATEL MD [Primary Care Provider] - Follow up as needed
[2017-03-22] MEDS ORDERED: LIDOCAINE 1%/EPINEPHRINE INJ 20 ML VIAL INJ ONE (02:28)
--- NOTE | 2017-03-22 02:44 | RADIOLOGY REPORT (SQ) ---
EXAM DESCRIPTION: CHEST SINGLE VIEW CLINICAL HISTORY: ams COMPARISON: 03/21/2017 FINDINGS: Single frontal view of the chest. Atherosclerotic calcification and tortuosity of the thoracic aorta. Heart is not enlarged. No consolidation, pneumothorax, or pleural effusion. No acute osseous abnormality. Upper abdominal soft tissues are unremarkable. IMPRESSION: 1. No acute pulmonary process identified.
[2017-03-22 03:10] LABS: ABSOLUTE BASOPHILS # (AUTO) 0.1 10^3/uL (0.0-0.2); ABSOLUTE LYMPHOCYTES (AUTO) 1.6 10^3/uL (0.5-4.7); ABSOLUTE MONOCYTES (AUTO) 0.8 10^3/uL (0.1-1.4); ABSOLUTE NEUT (AUTO) 12.8 10^3/uL (1.7-8.2); BASOPHILS % (AUTO) 0.4 % (0-2); HEMATOCRIT 33.4 % (37.9-51.0); HEMOGLOBIN 11.7 g/dL (13.5-17.0); LYMPHOCYTES % (AUTO) 10.4 % (13-45); MEAN CORPUSCULAR HEMOGLOBIN 32.1 pg (27.0-33.4); MEAN CORPUSCULAR HGB CONC 34.9 g/dL (32.0-36.0); MEAN CORPUSCULAR VOLUME 92 fl (80-97); PLATELET COUNT 358 10^3/uL (150-450); RED BLOOD COUNT 3.64 10^6/uL (4.35-5.55); RED CELL DISTRIBUTION WIDTH 13.4 % (11.5-14.0); SEGMENTED NEUTROPHILS % (AUTO) 84.2 % (42-78); TOTAL CELLS COUNTED % (AUTO) 100 %; WHITE BLOOD COUNT 15.1 10^3/uL (4.0-10.5)
[2017-03-22 04:29] LABS: ANION GAP 9 (5-19); BLOOD UREA NITROGEN 17 mg/dL (7-20); CALCIUM 8.6 mg/dL (8.4-10.2); CARBON DIOXIDE 27 mmol/L (22-30); CHLORIDE 105 mmol/L (98-107); GLUCOSE 120 mg/dL (75-110); POTASSIUM 4.2 mmol/L (3.6-5.0); SODIUM 140.5 mmol/L (137-145)
[2017-03-22] MEDS ORDERED: VANCOMYCIN HCL INJ 1000 MG VIAL IV ONE (04:47)
[2017-03-22] MEDS ORDERED: CEFEPIME 1 GM/D5W RTU 1 GM/50 ML RTUPB IV SCH (05:00)
[2017-03-22] MEDS ORDERED: CEFEPIME 1 GM/D5W RTU 1 GM/50 ML RTUPB IV ONE (05:17)
[2017-03-22] MEDS: NORMAL SALINE 1000 ML 1,000 ML IV PRN ×2 (09:14→22:10)
--- NOTE | 2017-03-22 09:16 | EKG REPORT ---
SEVERITY:- ABNORMAL ECG - SINUS RHYTHM MINIMAL ST ELEVATION, ANTERIOR LEADS : Confirmed by: Jem Barros 22-Mar-2017 09:15:32
[2017-03-22 09:34] LABS: APPEARANCE,URINE SLIGHTLY-CLOUDY; BILIRUBIN,URINE NEGATIVE (NEGATIVE); CALCIUM OXALATE CRYSTALS,URINE RARE /HPF; COLOR,URINE YELLOW; GLUCOSE, URINE NEGATIVE (NEGATIVE); KETONES,URINE NEGATIVE (NEGATIVE); LEUKOCYTE ESTERASE,URINE NEGATIVE (NEGATIVE); NITRITE,URINE NEGATIVE (NEGATIVE); PROTEIN,URINE 30 mg/dL (NEGATIVE); URINE SPECIFIC GRAVITY 1.024
[2017-03-22] MEDS: ENOXAPARIN SODIUM INJ 40 MG/0.4 ML DISP.SYRIN SUBCUT SCH (09:45)
[2017-03-22 10:02] LABS: FREE T4 (FREE THYROXINE) 1.54 ng/dL (0.78-2.19)
[2017-03-22 10:16] LABS: THYROID STIMULATING HORMONE 1.38 uIU/mL (0.47-4.68)
[2017-03-22 11:40] LABS: CREATINE KINASE MB 5.94 ng/mL (<4.55)
[2017-03-22 11:43] LABS: TROPONIN I 1.81 ng/mL
[2017-03-22] MEDS: AMPICILLIN SODIUM/SULBACTAM NA 3 GM in NORMAL SALINE 100 ML IV SCH ×2 (12:19→18:25)
[2017-03-22 15:41] LABS: CREATINE KINASE MB 5.72 ng/mL (<4.55)
[2017-03-22 15:50] LABS: TROPONIN I 1.7 ng/mL
--- NOTE | 2017-03-22 18:30 | PDOC H&P ---
History of Present Illness Admission Date/PCP: 03/22/17 04:55 COURTNEY PATEL MD History of Present Illness: CHAPO MCKEON JR is a 61 year old male, resident of assisted living facility, yesterday, he was transferred to the emergency room from the assisted living facility for evaluation of 3 day history of fever, in the ER he was evaluated he was found to have leukocytosis but there was no localizing source of infection that was apparent but he had a blood culture drawn yesterday when he came to the emergency room for evaluation. The emergency room physician discussed the case with me yesterday and we are agreed that he could be discharged back to the facility and that he come to the office for follow-up or if there is a change in his condition he will be admitted to the hospital for management .He was called from the assisted living facility today because of positive blood culture, no specific organism is yet identified. When I saw patient he has cellulitis of the right upper extremities very extensive up to the neck. Patient is a very poor historian he has CVA with residual dysphasia and right-sided weakness, the blood work also suggests rhabdomyolysis with severely elevated CPK. History taking is a challenge with this patient because of the expressive dysphasia he does not communicate effectively he does not answer questions appropriately. Patient looks very unkempt, with very poor dentition ,he smells of urine, he is probably urinary incontinence he has adult brief in place. Past Medical History Cardiac Medical History: Reports: Hyperlipidema, Hypertension Neurological Medical History: Reports: Ischemic CVA, Other - Right-sided hemiplegia GI Medical History: Reports: Gastroesophageal Reflux Disease Psychiatric Medical History: Reports: Dementia, Depression Past Surgical History Past Surgical History: Reports: Vascular Surgery - Right carotid Social History Smoking Status: Current Every Day Smoker Frequency of Alcohol Use: Heavy Hx Recreational Drug Use: No Drugs: None Hx Prescription Drug Abuse: No Family History Family History: Reviewed & Not Pertinent Parental Family History Reviewed: Yes Children Family History Reviewed: Yes Sibling(s) Family History Reviewed.: Yes Medication/Allergy Home Medications: Acetaminophen [Tylenol 325 mg Tablet] 650 mg PO Q4HP PRN 03/22/17 Acetaminophen [Tylenol 325 mg Tablet] 650 mg PO Q8 03/22/17 Aspirin [Ecotrin 325 mg EC Tablet] 325 mg PO DAILY 03/22/17 Cyanocobalamin (Vitamin B-12) [Vitamin B-12 1000 mcg Tablet] 1,000 mcg PO DAILY 03/22/17 Fluoxetine HCl [Prozac 20 mg Capsule] 20 mg PO DAILY 03/22/17 Folic Acid [Folvite 1 mg Tablet] 1 mg PO DAILY 03/22/17 Gabapentin [Neurontin] 600 mg PO Q8 03/22/17 Haloperidol [Haldol 2 mg Tablet] 2 mg PO Q12 03/22/17 Lorazepam [Ativan 1 mg Tablet] 1 mg PO Q12 03/22/17 Melatonin [Melatonin 3 mg Tablet] 3 mg PO QHS 03/22/17 Metoprolol Tartrate [Lopressor 25 mg Tablet] 25 mg PO Q12 03/22/17 Multivitamin [Tab-A-Elizabeth (Multiple Vitamin) Tablet] 1 tab PO DAILY 03/22/17 Nitroglycerin [Nitrostat] 0.4 mg PO Q5MP PRN 03/22/17 Pantoprazole Sodium [Protonix] 20 mg PO DAILY 03/22/17 Simvastatin [Zocor 20 mg Tablet] 20 mg PO QHS 03/22/17 Thiamine HCl [Thiamine 100 mg Tablet] 100 mg PO DAILY 03/22/17 Allergies/Adverse Reactions: No Known Allergies Allergy (Verified 06/16/15 20:23) Review of Systems ROS unobtainable: Other - Expressive dysphasia Physical Exam Vital Signs: Temp Pulse Resp BP Pulse Ox 98.9 F 75 17 150/92 H 94 03/22/17 10:00 03/22/17 09:21 03/22/17 15:01 03/22/17 15:01 03/22/17 15:01 Intake & Output 03/21/17 03/22/17 03/23/17 06:59 06:59 06:59 Output Total 50 Balance -50 Weight 60.6 kg General appearance: PRESENT: no acute distress Eye exam: PRESENT: PERRLA Mouth exam: PRESENT: other - Poor oral dentition Respiratory exam: PRESENT: decreased breath sounds Cardiovascular exam: PRESENT: irregular rhythm, +S1, +S2 GI/Abdominal exam: PRESENT: soft Extremities exam: PRESENT: other - Erythema of the right upper extremities involving the upper arm up to the neck consistent with cellulitis Neurological exam: PRESENT: alert, other - Right sided hemiplegia Results Laboratory Results: 03/22/17 03/22/17 03/22/17 09:04 09:04 09:04 Ammonia < 8.7 L Lipase 70.9 TSH 1.38 Free T4 1.54 Urine Color Urine Appearance Urine pH Ur Specific [place] Urine Protein Urine Glucose (UA) Urine Ketones Urine Blood Urine Nitrite Ur Leukocyte Esterase Urine WBC (Auto) Urine RBC (Auto) 03/22/17 09:14 Ammonia Lipase TSH Free T4 Urine Color YELLOW Urine Appearance SLIGHTLY-CLOUDY Urine pH 5.0 Ur Specific [place] 1.024 Urine Protein 30 H Urine Glucose (UA) NEGATIVE Urine Ketones NEGATIVE Urine Blood SMALL H Urine Nitrite NEGATIVE Ur Leukocyte Esterase NEGATIVE Urine WBC (Auto) 2 Urine RBC (Auto) 3 03/22/17 03/22/17 03/22/17 09:04 09:04 10:50 Creatine Kinase 1023 H CK-MB (CK-2) Cancelled 5.94 H Troponin I Cancelled 1.810 03/22/17 03/22/17 15:00 15:00 Creatine Kinase 760 H CK-MB (CK-2) 5.72 H Troponin I 1.700 Impressions: Chest X-Ray 03/22/17 02:25 IMPRESSION: 1. No acute pulmonary process identified. Assessment & Plan - Diagnosis (1) Cellulitis of right upper extremity Is this a current diagnosis for this admission?: Yes Plan: Patient admitted to be treated with IV antibiotic (2) Rhabdomyolysis Qualifiers: Rhabdomyolysis type: traumatic Encounter type: initial encounter Qualified Code(s): T79.6XXA - Traumatic ischemia of muscle, initial encounter Is this a current diagnosis for this admission?: Yes Plan: Patient probably fell, he has a history of CVA with right-sided weakness history of previous fall (3) Hemiparesis affecting right side as late effect of cerebrovascular accident (CVA) Is this a current diagnosis for this admission?: Yes
[2017-03-22] MEDS ORDERED: ACETAMINOPHEN 325 MG TABLET PO PRN (18:31)
[2017-03-22] MEDS ORDERED: (PENDING PHARMACY ID) (Pantoprazole Sodium [Protonix] 20 MG) PO SCH (18:45)
--- NOTE | 2017-03-22 21:30 | EKG REPORT ---
SEVERITY:- NORMAL ECG - SINUS RHYTHM : Confirmed by: Jem Barros 22-Mar-2017 21:29:40
--- NOTE | 2017-03-22 21:31 | EKG REPORT ---
SEVERITY:- ABNORMAL ECG - SINUS RHYTHM MINIMAL ST DEPRESSION, LATERAL LEADS : Confirmed by: Jem Barros 22-Mar-2017 21:30:05
[2017-03-22 21:48] LABS: CREATINE KINASE MB 4.92 ng/mL (<4.55)
[2017-03-22] MEDS: SIMVASTATIN 10 MG TABLET PO SCH (21:49)
[2017-03-22] MEDS: HALOPERIDOL 2 MG TABLET PO SCH (21:49)
[2017-03-22] MEDS: LORAZEPAM 1 MG TABLET PO SCH (21:49)
[2017-03-22] MEDS: MELATONIN 3 MG TABLET PO SCH (21:49)
[2017-03-22] MEDS: ACETAMINOPHEN 325 MG TABLET PO SCH (21:50)
[2017-03-22] MEDS: GABAPENTIN 300 MG CAPSULE PO SCH (21:50)
[2017-03-22] MEDS: METOPROLOL TARTRATE 25 MG TABLET PO SCH (21:50)
[2017-03-22 22:01] LABS: TROPONIN I 1.25 ng/mL
[2017-03-23] MEDS: AMPICILLIN SODIUM/SULBACTAM NA 3 GM in NORMAL SALINE 100 ML IV SCH ×5 (00:03→23:15)
[2017-03-23] MEDS: ACETAMINOPHEN 325 MG TABLET PO SCH ×3 (05:54→21:56)
[2017-03-23] MEDS: LANSOPRAZOLE 15 MG TAB.RAP.DR PO SCH (05:55)
[2017-03-23] MEDS: GABAPENTIN 300 MG CAPSULE PO SCH ×3 (05:55→21:56)
[2017-03-23 07:58] LABS: ABSOLUTE LYMPHOCYTES (AUTO) 1.3 10^3/uL (0.5-4.7); ABSOLUTE MONOCYTES (AUTO) 0.6 10^3/uL (0.1-1.4); ABSOLUTE NEUT (AUTO) 10.2 10^3/uL (1.7-8.2); BASOPHILS % (AUTO) 0.2 % (0-2); EOSINOPHILS % (AUTO) 0.4 % (0-6); HEMATOCRIT 31.5 % (37.9-51.0); HEMOGLOBIN 10.6 g/dL (13.5-17.0); LYMPHOCYTES % (AUTO) 10.7 % (13-45); MEAN CORPUSCULAR HEMOGLOBIN 31.3 pg (27.0-33.4); MEAN CORPUSCULAR HGB CONC 33.8 g/dL (32.0-36.0); MEAN CORPUSCULAR VOLUME 93 fl (80-97); MONOCYTES % (AUTO) 4.6 % (3-13); PLATELET COUNT 303 10^3/uL (150-450); RED CELL DISTRIBUTION WIDTH 12.9 % (11.5-14.0); SEGMENTED NEUTROPHILS % (AUTO) 84.1 % (42-78); TOTAL CELLS COUNTED % (AUTO) 100 %; WHITE BLOOD COUNT 12.1 10^3/uL (4.0-10.5)
[2017-03-23 08:25] LABS: ALANINE AMINOTRANSFERASE 40 U/L (21-72); ALBUMIN 2.5 g/dL (3.5-5.0); ALKALINE PHOSPHATASE 97 U/L (38-126); ANION GAP 9 (5-19); ASPARTATE AMINO TRANSFERASE 58 U/L (17-59); BILIRUBIN,DIRECT 0.1 mg/dL (0.0-0.4); BILIRUBIN,TOTAL 0.4 mg/dL (0.2-1.3); BLOOD UREA NITROGEN 10 mg/dL (7-20); CALCIUM 8.1 mg/dL (8.4-10.2); CARBON DIOXIDE 24 mmol/L (22-30); CHLORIDE 105 mmol/L (98-107); GLUCOSE 80 mg/dL (75-110); POTASSIUM 3.6 mmol/L (3.6-5.0); SODIUM 138.4 mmol/L (137-145); TOTAL PROTEIN 4.9 g/dL (6.3-8.2)
[2017-03-23] MEDS: MULTIVITAMIN TABLET PO SCH (10:15)
[2017-03-23] MEDS: CYANOCOBALAMIN (VITAMIN B-12) 1,000 MCG TABLET PO SCH (10:16)
[2017-03-23] MEDS: HALOPERIDOL 2 MG TABLET PO SCH ×2 (10:16→21:56)
[2017-03-23] MEDS: FLUOXETINE HCL 20 MG CAPSULE PO SCH (10:17)
[2017-03-23] MEDS: ENOXAPARIN SODIUM INJ 40 MG/0.4 ML DISP.SYRIN SUBCUT SCH (10:17)
[2017-03-23] MEDS: FOLIC ACID 1 MG TABLET PO SCH (10:17)
[2017-03-23] MEDS: ASPIRIN 325 MG TABLET, ENT COATED PO SCH (10:17)
[2017-03-23] MEDS: THIAMINE HCL 100 MG TABLET PO SCH (10:18)
[2017-03-23] MEDS: LORAZEPAM 1 MG TABLET PO SCH ×2 (13:23→21:56)
[2017-03-23] MEDS: METOPROLOL TARTRATE 25 MG TABLET PO SCH ×2 (13:23→21:56)
[2017-03-23] MEDS: MELATONIN 3 MG TABLET PO SCH (21:56)
[2017-03-23] MEDS: SIMVASTATIN 10 MG TABLET PO SCH (21:56)
--- NOTE | 2017-03-23 22:11 | PDOC PROGRESS REPORT ---
Subjective Progress Note for:: 03/23/17 Subjective:: Patient admitted for management of rhabdomyolysis, cellulitis of the right upper extremities Reason For Visit: RHABDOMYOLYSIS,POSITIVE BLOOD CULTURE,ELEVATED Physical Exam Vital Signs: Temp Pulse Resp BP Pulse Ox 97.7 F 57 L 12 127/56 H 97 03/23/17 15:07 03/23/17 19:00 03/23/17 15:07 03/23/17 15:07 03/23/17 15:07 Intake & Output 03/22/17 03/23/17 03/24/17 06:59 06:59 06:59 Intake Total 60 300 Output Total 50 Balance 10 300 Weight 59 kg General appearance: PRESENT: no acute distress Eye exam: PRESENT: PERRLA Respiratory exam: PRESENT: clear to auscultation sayra Cardiovascular exam: PRESENT: +S1, +S2 GI/Abdominal exam: PRESENT: soft Neurological exam: PRESENT: alert, motor sensory deficit Skin exam: PRESENT: erythema Results Laboratory Results: 03/23/17 06:59 03/23/17 06:59 03/23/17 03/23/17 06:59 06:59 WBC 12.1 H RBC 3.40 L Hgb 10.6 L Hct 31.5 L MCV 93 MCH 31.3 MCHC 33.8 RDW 12.9 Plt Count 303 Seg Neutrophils % 84.1 H Lymphocytes % 10.7 L Monocytes % 4.6 Eosinophils % 0.4 Basophils % 0.2 Absolute Neutrophils 10.2 H Absolute Lymphocytes 1.3 Absolute Monocytes 0.6 Absolute Eosinophils 0.0 Absolute Basophils 0.0 Sodium 138.4 Potassium 3.6 Chloride 105 Carbon Dioxide 24 Anion Gap 9 BUN 10 Creatinine 0.50 L Est GFR ( Amer) > 60 Est GFR (Non-Af Amer) > 60 Glucose 80 Calcium 8.1 L Total Bilirubin 0.4 AST 58 ALT 40 Alkaline Phosphatase 97 Total Protein 4.9 L Albumin 2.5 L 03/22/17 03/22/17 03/22/17 09:04 09:04 10:50 Creatine Kinase 1023 H CK-MB (CK-2) Cancelled 5.94 H Troponin I Cancelled 1.810 03/22/17 03/22/17 03/22/17 15:00 15:00 20:43 Creatine Kinase 760 H 628 H CK-MB (CK-2) 5.72 H Troponin I 1.700 02/07/18 20:43 Creatine Kinase CK-MB (CK-2) 4.92 H Troponin I 1.250 Impressions: Chest X-Ray 03/22/17 02:25 IMPRESSION: 1. No acute pulmonary process identified. Assessment & Plan - Diagnosis (1) Cellulitis of right upper extremity Is this a current diagnosis for this admission?: Yes (2) Rhabdomyolysis Qualifiers: Rhabdomyolysis type: traumatic Encounter type: initial encounter Qualified Code(s): T79.6XXA - Traumatic ischemia of muscle, initial encounter Is this a current diagnosis for this admission?: Yes (3) Hemiparesis affecting right side as late effect of cerebrovascular accident (CVA) Is this a current diagnosis for this admission?: Yes - Plan Summary Plan Summary: Continue IV antibiotic and hydration
[2017-03-24 04:17] LABS: ABSOLUTE EOSINOPHILS # (AUTO) 0.2 10^3/uL (0.0-0.6); ABSOLUTE LYMPHOCYTES (AUTO) 1.7 10^3/uL (0.5-4.7); ABSOLUTE MONOCYTES (AUTO) 0.5 10^3/uL (0.1-1.4); ABSOLUTE NEUT (AUTO) 6.3 10^3/uL (1.7-8.2); BASOPHILS % (AUTO) 0.4 % (0-2); EOSINOPHILS % (AUTO) 2.7 % (0-6); HEMATOCRIT 32.6 % (37.9-51.0); HEMOGLOBIN 11.2 g/dL (13.5-17.0); MEAN CORPUSCULAR HEMOGLOBIN 31.9 pg (27.0-33.4); MEAN CORPUSCULAR HGB CONC 34.3 g/dL (32.0-36.0); MEAN CORPUSCULAR VOLUME 93 fl (80-97); MONOCYTES % (AUTO) 5.6 % (3-13); PLATELET COUNT 314 10^3/uL (150-450); RED BLOOD COUNT 3.51 10^6/uL (4.35-5.55); RED CELL DISTRIBUTION WIDTH 13.2 % (11.5-14.0); SEGMENTED NEUTROPHILS % (AUTO) 72.3 % (42-78); TOTAL CELLS COUNTED % (AUTO) 100 %; WHITE BLOOD COUNT 8.7 10^3/uL (4.0-10.5)
[2017-03-24 04:31] LABS: ALANINE AMINOTRANSFERASE 42 U/L (21-72); ALBUMIN 2.6 g/dL (3.5-5.0); ALKALINE PHOSPHATASE 99 U/L (38-126); ANION GAP 9 (5-19); ASPARTATE AMINO TRANSFERASE 45 U/L (17-59); BILIRUBIN,DIRECT 0.1 mg/dL (0.0-0.4); BILIRUBIN,TOTAL 0.2 mg/dL (0.2-1.3); BLOOD UREA NITROGEN 8 mg/dL (7-20); CALCIUM 8.2 mg/dL (8.4-10.2); CARBON DIOXIDE 27 mmol/L (22-30); CHLORIDE 105 mmol/L (98-107); GLUCOSE 89 mg/dL (75-110); POTASSIUM 3.4 mmol/L (3.6-5.0); SODIUM 140.6 mmol/L (137-145)
[2017-03-24] MEDS: ACETAMINOPHEN 325 MG TABLET PO SCH ×3 (05:31→21:15)
[2017-03-24] MEDS: LANSOPRAZOLE 15 MG TAB.RAP.DR PO SCH (05:31)
[2017-03-24] MEDS: GABAPENTIN 300 MG CAPSULE PO SCH ×3 (05:31→21:15)
[2017-03-24] MEDS: AMPICILLIN SODIUM/SULBACTAM NA 3 GM in NORMAL SALINE 100 ML IV SCH ×4 (05:31→23:36)
[2017-03-24] MEDS: HALOPERIDOL 2 MG TABLET PO SCH ×2 (09:33→21:15)
[2017-03-24] MEDS: CYANOCOBALAMIN (VITAMIN B-12) 1,000 MCG TABLET PO SCH (09:33)
[2017-03-24] MEDS: LORAZEPAM 1 MG TABLET PO SCH ×2 (09:34→21:15)
[2017-03-24] MEDS: THIAMINE HCL 100 MG TABLET PO SCH (09:34)
[2017-03-24] MEDS: FOLIC ACID 1 MG TABLET PO SCH (09:34)
[2017-03-24] MEDS: ASPIRIN 325 MG TABLET, ENT COATED PO SCH (09:35)
[2017-03-24] MEDS: MULTIVITAMIN TABLET PO SCH (09:35)
[2017-03-24] MEDS: METOPROLOL TARTRATE 25 MG TABLET PO SCH ×2 (09:35→21:15)
[2017-03-24] MEDS: ENOXAPARIN SODIUM INJ 40 MG/0.4 ML DISP.SYRIN SUBCUT SCH (09:35)
[2017-03-24] MEDS: FLUOXETINE HCL 20 MG CAPSULE PO SCH (09:35)
[2017-03-24] MEDS: NORMAL SALINE 1000 ML 1,000 ML IV PRN (11:45)
[2017-03-24] MEDS ORDERED: POTASSI CL 20 MEQ/50 ML RIDER 20 MEQ/50 ML RTUPB IV ONE (19:30)
[2017-03-24] MEDS: MELATONIN 3 MG TABLET PO SCH (21:15)
[2017-03-24] MEDS: SIMVASTATIN 10 MG TABLET PO SCH (21:15)
--- NOTE | 2017-03-24 21:26 | PDOC PROGRESS REPORT ---
Subjective Progress Note for:: 03/24/17 Subjective:: Patient is seen by the bedside, no new complaints Reason For Visit: RHABDOMYOLYSIS,POSITIVE BLOOD CULTURE,ELEVATED Physical Exam Vital Signs: Temp Pulse Resp BP Pulse Ox 97.8 F 66 17 106/76 96 03/24/17 15:38 03/24/17 19:00 03/24/17 15:38 03/24/17 15:38 03/24/17 15:38 Intake & Output 03/23/17 03/24/17 03/25/17 06:59 06:59 06:59 Intake Total 60 380 489 Output Total 50 Balance 10 380 489 Weight 59 kg 59 kg General appearance: PRESENT: no acute distress Eye exam: PRESENT: PERRLA Respiratory exam: PRESENT: clear to auscultation sayra Cardiovascular exam: PRESENT: +S1, +S2 Neurological exam: PRESENT: alert Results Laboratory Results: 03/24/17 03:56 03/24/17 03:56 03/24/17 03/24/17 03:56 03:56 WBC 8.7 RBC 3.51 L Hgb 11.2 L Hct 32.6 L MCV 93 MCH 31.9 MCHC 34.3 RDW 13.2 Plt Count 314 Seg Neutrophils % 72.3 Lymphocytes % 19.0 Monocytes % 5.6 Eosinophils % 2.7 Basophils % 0.4 Absolute Neutrophils 6.3 Absolute Lymphocytes 1.7 Absolute Monocytes 0.5 Absolute Eosinophils 0.2 Absolute Basophils 0.0 Sodium 140.6 Potassium 3.4 L Chloride 105 Carbon Dioxide 27 Anion Gap 9 BUN 8 Creatinine 0.51 L Est GFR ( Amer) > 60 Est GFR (Non-Af Amer) > 60 Glucose 89 Calcium 8.2 L Total Bilirubin 0.2 AST 45 ALT 42 Alkaline Phosphatase 99 Total Protein 5.0 L Albumin 2.6 L 03/22/17 09:14 Clean Catch Midstream Urine Culture - Final NO GROWTH 2 DAYS 03/22/17 03/22/17 03/22/17 09:04 09:04 10:50 Creatine Kinase 1023 H CK-MB (CK-2) Cancelled 5.94 H Troponin I Cancelled 1.810 03/22/17 03/22/17 03/22/17 15:00 15:00 20:43 Creatine Kinase 760 H 628 H CK-MB (CK-2) 5.72 H Troponin I 1.700 03/22/17 20:43 Creatine Kinase CK-MB (CK-2) 4.92 H Troponin I 1.250 Impressions: Chest X-Ray 03/22/17 02:25 IMPRESSION: 1. No acute pulmonary process identified. Assessment & Plan - Diagnosis (1) Cellulitis of right upper extremity Is this a current diagnosis for this admission?: Yes (2) Rhabdomyolysis Qualifiers: Rhabdomyolysis type: traumatic Encounter type: initial encounter Qualified Code(s): T79.6XXA - Traumatic ischemia of muscle, initial encounter Is this a current diagnosis for this admission?: Yes (3) Hemiparesis affecting right side as late effect of cerebrovascular accident (CVA) Is this a current diagnosis for this admission?: Yes
[2017-03-25 05:30] LABS: ABSOLUTE BASOPHILS # (AUTO) 0.1 10^3/uL (0.0-0.2); ABSOLUTE EOSINOPHILS # (AUTO) 0.2 10^3/uL (0.0-0.6); ABSOLUTE LYMPHOCYTES (AUTO) 1.4 10^3/uL (0.5-4.7); ABSOLUTE MONOCYTES (AUTO) 0.4 10^3/uL (0.1-1.4); ABSOLUTE NEUT (AUTO) 8.9 10^3/uL (1.7-8.2); BASOPHILS % (AUTO) 0.5 % (0-2); EOSINOPHILS % (AUTO) 2.2 % (0-6); HEMATOCRIT 34.7 % (37.9-51.0); HEMOGLOBIN 11.7 g/dL (13.5-17.0); LYMPHOCYTES % (AUTO) 13.1 % (13-45); MEAN CORPUSCULAR HEMOGLOBIN 31.1 pg (27.0-33.4); MEAN CORPUSCULAR HGB CONC 33.7 g/dL (32.0-36.0); MEAN CORPUSCULAR VOLUME 92 fl (80-97); MONOCYTES % (AUTO) 3.4 % (3-13); PLATELET COUNT 380 10^3/uL (150-450); RED BLOOD COUNT 3.76 10^6/uL (4.35-5.55); RED CELL DISTRIBUTION WIDTH 13.3 % (11.5-14.0); SEGMENTED NEUTROPHILS % (AUTO) 80.8 % (42-78); TOTAL CELLS COUNTED % (AUTO) 100 %
[2017-03-25] MEDS: AMPICILLIN SODIUM/SULBACTAM NA 3 GM in NORMAL SALINE 100 ML IV SCH ×4 (05:30→23:10)
[2017-03-25] MEDS: GABAPENTIN 300 MG CAPSULE PO SCH ×3 (05:30→21:45)
[2017-03-25] MEDS: ACETAMINOPHEN 325 MG TABLET PO SCH ×3 (05:30→21:45)
[2017-03-25] MEDS: LANSOPRAZOLE 15 MG TAB.RAP.DR PO SCH (05:30)
[2017-03-25 05:54] LABS: ALANINE AMINOTRANSFERASE 39 U/L (21-72); ALBUMIN 2.6 g/dL (3.5-5.0); ALKALINE PHOSPHATASE 114 U/L (38-126); ANION GAP 9 (5-19); ASPARTATE AMINO TRANSFERASE 35 U/L (17-59); BILIRUBIN,DIRECT 0.3 mg/dL (0.0-0.4); BILIRUBIN,TOTAL 0.4 mg/dL (0.2-1.3); BLOOD UREA NITROGEN 6 mg/dL (7-20); CALCIUM 8.4 mg/dL (8.4-10.2); CARBON DIOXIDE 25 mmol/L (22-30); CHLORIDE 106 mmol/L (98-107); GLUCOSE 84 mg/dL (75-110); POTASSIUM 3.6 mmol/L (3.6-5.0); SODIUM 139.9 mmol/L (137-145); TOTAL PROTEIN 5.4 g/dL (6.3-8.2)
[2017-03-25] MEDS: FLUOXETINE HCL 20 MG CAPSULE PO SCH (10:55)
[2017-03-25] MEDS: CYANOCOBALAMIN (VITAMIN B-12) 1,000 MCG TABLET PO SCH (10:55)
[2017-03-25] MEDS: ASPIRIN 325 MG TABLET, ENT COATED PO SCH (10:55)
[2017-03-25] MEDS: MULTIVITAMIN TABLET PO SCH (10:55)
[2017-03-25] MEDS: METOPROLOL TARTRATE 25 MG TABLET PO SCH ×2 (10:55→21:33)
[2017-03-25] MEDS: HALOPERIDOL 2 MG TABLET PO SCH ×2 (10:55→21:45)
[2017-03-25] MEDS: FOLIC ACID 1 MG TABLET PO SCH (10:55)
[2017-03-25] MEDS: ENOXAPARIN SODIUM INJ 40 MG/0.4 ML DISP.SYRIN SUBCUT SCH (10:55)
[2017-03-25] MEDS: THIAMINE HCL 100 MG TABLET PO SCH (10:55)
[2017-03-25] MEDS: LORAZEPAM 1 MG TABLET PO SCH ×2 (10:55→21:45)
[2017-03-25 16:11] LABS: UR PRO/CREAT RATIO RESULT 0.2 mg/mg (0.0-0.2); URINE CREATININE 66.1 mg/dL (22-328); URINE PROTEIN 12.4 mg/dL (<12)
--- NOTE | 2017-03-25 20:09 | PDOC PROGRESS REPORT ---
Subjective Progress Note for:: 03/25/17 Subjective:: Patient is seen by the bedside, no new complaints Reason For Visit: RHABDOMYOLYSIS,POSITIVE BLOOD CULTURE,ELEVATED Physical Exam Vital Signs: Temp Pulse Resp BP Pulse Ox 98.0 F 59 L 16 127/68 H 96 03/25/17 16:00 03/25/17 19:00 03/25/17 16:00 03/25/17 16:00 03/25/17 16:00 Intake & Output 03/24/17 03/25/17 03/26/17 06:59 06:59 06:59 Intake Total 380 889 960 Output Total 180 Balance 380 889 780 Weight 59 kg General appearance: PRESENT: no acute distress Eye exam: PRESENT: PERRLA Respiratory exam: PRESENT: clear to auscultation sayra Cardiovascular exam: PRESENT: +S1, +S2 GI/Abdominal exam: PRESENT: soft Neurological exam: PRESENT: alert Results Laboratory Results: 03/25/17 04:32 03/25/17 04:32 03/25/17 03/25/17 04:32 04:32 WBC 11.0 H RBC 3.76 L Hgb 11.7 L Hct 34.7 L MCV 92 MCH 31.1 MCHC 33.7 RDW 13.3 Plt Count 380 Seg Neutrophils % 80.8 H Lymphocytes % 13.1 Monocytes % 3.4 Eosinophils % 2.2 Basophils % 0.5 Absolute Neutrophils 8.9 H Absolute Lymphocytes 1.4 Absolute Monocytes 0.4 Absolute Eosinophils 0.2 Absolute Basophils 0.1 Sodium 139.9 Potassium 3.6 Chloride 106 Carbon Dioxide 25 Anion Gap 9 BUN 6 L Creatinine 0.48 L Est GFR ( Amer) > 60 Est GFR (Non-Af Amer) > 60 Glucose 84 Calcium 8.4 Total Bilirubin 0.4 AST 35 ALT 39 Alkaline Phosphatase 114 Total Protein 5.4 L Albumin 2.6 L 03/22/17 03/22/17 03/22/17 09:04 09:04 10:50 Creatine Kinase 1023 H CK-MB (CK-2) Cancelled 5.94 H Troponin I Cancelled 1.810 03/22/17 03/22/17 03/22/17 15:00 15:00 20:43 Creatine Kinase 760 H 628 H CK-MB (CK-2) 5.72 H Troponin I 1.700 03/22/17 20:43 Creatine Kinase CK-MB (CK-2) 4.92 H Troponin I 1.250 Impressions: Chest X-Ray 03/22/17 02:25 IMPRESSION: 1. No acute pulmonary process identified. Assessment & Plan - Diagnosis (1) Cellulitis of right upper extremity Is this a current diagnosis for this admission?: Yes (2) Rhabdomyolysis Qualifiers: Rhabdomyolysis type: traumatic Encounter type: initial encounter Qualified Code(s): T79.6XXA - Traumatic ischemia of muscle, initial encounter Is this a current diagnosis for this admission?: Yes (3) Hemiparesis affecting right side as late effect of cerebrovascular accident (CVA) Is this a current diagnosis for this admission?: Yes - Plan Summary Plan Summary: Continue treatment
[2017-03-25] MEDS: SIMVASTATIN 10 MG TABLET PO SCH (21:46)
[2017-03-25] MEDS: MELATONIN 3 MG TABLET PO SCH (21:46)
[2017-03-26] MEDS: ACETAMINOPHEN 325 MG TABLET PO SCH ×3 (05:23→21:28)
[2017-03-26] MEDS: AMPICILLIN SODIUM/SULBACTAM NA 3 GM in NORMAL SALINE 100 ML IV SCH ×4 (05:23→23:28)
[2017-03-26] MEDS: GABAPENTIN 300 MG CAPSULE PO SCH ×3 (05:23→21:28)
[2017-03-26] MEDS: LANSOPRAZOLE 15 MG TAB.RAP.DR PO SCH (05:23)
[2017-03-26] MEDS: LORAZEPAM 1 MG TABLET PO SCH ×2 (09:32→21:28)
[2017-03-26] MEDS: ASPIRIN 325 MG TABLET, ENT COATED PO SCH (09:32)
[2017-03-26] MEDS: THIAMINE HCL 100 MG TABLET PO SCH (09:32)
[2017-03-26] MEDS: MULTIVITAMIN TABLET PO SCH (09:32)
[2017-03-26] MEDS: FOLIC ACID 1 MG TABLET PO SCH (09:32)
[2017-03-26] MEDS: CYANOCOBALAMIN (VITAMIN B-12) 1,000 MCG TABLET PO SCH (09:32)
[2017-03-26] MEDS: FLUOXETINE HCL 20 MG CAPSULE PO SCH (09:32)
[2017-03-26] MEDS: METOPROLOL TARTRATE 25 MG TABLET PO SCH ×2 (09:32→21:21)
[2017-03-26] MEDS: ENOXAPARIN SODIUM INJ 40 MG/0.4 ML DISP.SYRIN SUBCUT SCH (09:33)
[2017-03-26] MEDS: HALOPERIDOL 2 MG TABLET PO SCH ×2 (09:33→21:28)
--- NOTE | 2017-03-26 17:55 | PDOC PROGRESS REPORT ---
Subjective Progress Note for:: 03/26/17 Subjective:: Patient seen by the bedside, there is a concern he may not be able to return to [facility], he may have to go to a nursing home home. Reason For Visit: RHABDOMYOLYSIS,POSITIVE BLOOD CULTURE,ELEVATED Physical Exam Vital Signs: Temp Pulse Resp BP Pulse Ox 98.2 F 51 L 18 147/74 H 96 03/26/17 16:00 03/26/17 16:00 03/26/17 16:00 03/26/17 16:00 03/26/17 16:00 Intake & Output 03/25/17 03/26/17 03/27/17 06:59 06:59 06:59 Intake Total 889 1660 Output Total 180 Balance 889 1480 Weight 60.2 kg General appearance: PRESENT: no acute distress Eye exam: PRESENT: PERRLA Respiratory exam: PRESENT: clear to auscultation sayra Cardiovascular exam: PRESENT: +S1, +S2 GI/Abdominal exam: PRESENT: soft Neurological exam: PRESENT: alert Results Laboratory Results: 03/25/17 04:32 03/25/17 04:32 03/22/17 03/22/17 03/22/17 09:04 09:04 10:50 Creatine Kinase 1023 H CK-MB (CK-2) Cancelled 5.94 H Troponin I Cancelled 1.810 03/22/17 03/22/17 03/22/17 15:00 15:00 20:43 Creatine Kinase 760 H 628 H CK-MB (CK-2) 5.72 H Troponin I 1.700 03/22/17 20:43 Creatine Kinase CK-MB (CK-2) 4.92 H Troponin I 1.250 Impressions: Chest X-Ray 03/22/17 02:25 IMPRESSION: 1. No acute pulmonary process identified. Assessment & Plan - Diagnosis (1) Cellulitis of right upper extremity Is this a current diagnosis for this admission?: Yes (2) Rhabdomyolysis Qualifiers: Rhabdomyolysis type: traumatic Encounter type: initial encounter Qualified Code(s): T79.6XXA - Traumatic ischemia of muscle, initial encounter Is this a current diagnosis for this admission?: Yes (3) Hemiparesis affecting right side as late effect of cerebrovascular accident (CVA) Is this a current diagnosis for this admission?: Yes
[2017-03-26] MEDS: MELATONIN 3 MG TABLET PO SCH (21:28)
[2017-03-26] MEDS: SIMVASTATIN 10 MG TABLET PO SCH (21:28)
[2017-03-26] MEDS: NORMAL SALINE 1000 ML 1,000 ML IV PRN (21:28)
[2017-03-27] MEDS: AMPICILLIN SODIUM/SULBACTAM NA 3 GM in NORMAL SALINE 100 ML IV SCH ×4 (05:40→23:07)
[2017-03-27] MEDS: LANSOPRAZOLE 15 MG TAB.RAP.DR PO SCH (05:41)
[2017-03-27] MEDS: ACETAMINOPHEN 325 MG TABLET PO SCH ×3 (05:41→23:01)
[2017-03-27] MEDS: GABAPENTIN 300 MG CAPSULE PO SCH ×3 (05:41→23:01)
[2017-03-27] MEDS: METOPROLOL TARTRATE 25 MG TABLET PO SCH ×2 (09:36→23:03)
[2017-03-27] MEDS: ENOXAPARIN SODIUM INJ 40 MG/0.4 ML DISP.SYRIN SUBCUT SCH (09:43)
[2017-03-27] MEDS: THIAMINE HCL 100 MG TABLET PO SCH (09:44)
[2017-03-27] MEDS: ASPIRIN 325 MG TABLET, ENT COATED PO SCH (09:44)
[2017-03-27] MEDS: MULTIVITAMIN TABLET PO SCH (09:44)
[2017-03-27] MEDS: FOLIC ACID 1 MG TABLET PO SCH (09:44)
[2017-03-27] MEDS: CYANOCOBALAMIN (VITAMIN B-12) 1,000 MCG TABLET PO SCH (09:44)
[2017-03-27] MEDS: HALOPERIDOL 2 MG TABLET PO SCH ×2 (09:44→23:00)
[2017-03-27] MEDS: FLUOXETINE HCL 20 MG CAPSULE PO SCH (09:44)
[2017-03-27] MEDS: NORMAL SALINE 1000 ML 1,000 ML IV PRN ×2 (09:45→23:08)
[2017-03-27] MEDS: LORAZEPAM 1 MG TABLET PO SCH ×2 (11:19→23:02)
--- NOTE | 2017-03-27 21:53 | PDOC PROGRESS REPORT ---
Subjective Progress Note for:: 03/27/17 Subjective:: Patient was seen by the bedside the cellulitis is improving hopefully discharge the next few days Reason For Visit: RHABDOMYOLYSIS,POSITIVE BLOOD CULTURE,ELEVATED Physical Exam Vital Signs: Temp Pulse Resp BP Pulse Ox 98.2 F 54 L 15 149/64 H 94 03/27/17 20:00 03/27/17 20:00 03/27/17 20:00 03/27/17 20:00 03/27/17 20:00 Intake & Output 03/26/17 03/27/17 03/28/17 06:59 06:59 06:59 Intake Total 1660 1228 236 Output Total 180 Balance 1480 1228 236 Weight 60.2 kg 69 kg General appearance: PRESENT: no acute distress Eye exam: PRESENT: PERRLA Respiratory exam: PRESENT: clear to auscultation sayra Cardiovascular exam: PRESENT: +S1, +S2 GI/Abdominal exam: PRESENT: soft Neurological exam: PRESENT: alert Results Laboratory Results: 03/25/17 04:32 03/25/17 04:32 03/22/17 03/22/17 03/22/17 09:04 09:04 10:50 Creatine Kinase 1023 H CK-MB (CK-2) Cancelled 5.94 H Troponin I Cancelled 1.810 03/22/17 03/22/17 03/22/17 15:00 15:00 20:43 Creatine Kinase 760 H 628 H CK-MB (CK-2) 5.72 H Troponin I 1.700 03/22/17 20:43 Creatine Kinase CK-MB (CK-2) 4.92 H Troponin I 1.250 Impressions: Chest X-Ray 03/22/17 02:25 IMPRESSION: 1. No acute pulmonary process identified. Assessment & Plan - Diagnosis (1) Cellulitis of right upper extremity Is this a current diagnosis for this admission?: Yes (2) Rhabdomyolysis Qualifiers: Rhabdomyolysis type: traumatic Encounter type: initial encounter Qualified Code(s): T79.6XXA - Traumatic ischemia of muscle, initial encounter Is this a current diagnosis for this admission?: Yes (3) Hemiparesis affecting right side as late effect of cerebrovascular accident (CVA) Is this a current diagnosis for this admission?: Yes
[2017-03-27] MEDS: SIMVASTATIN 10 MG TABLET PO SCH (23:01)
[2017-03-27] MEDS: MELATONIN 3 MG TABLET PO SCH (23:02)
[2017-03-28] MEDS: AMPICILLIN SODIUM/SULBACTAM NA 3 GM in NORMAL SALINE 100 ML IV SCH ×4 (05:14→23:36)
[2017-03-28] MEDS: GABAPENTIN 300 MG CAPSULE PO SCH ×3 (05:15→23:35)
[2017-03-28] MEDS: LANSOPRAZOLE 15 MG TAB.RAP.DR PO SCH (05:15)
[2017-03-28] MEDS: ACETAMINOPHEN 325 MG TABLET PO SCH ×3 (05:15→23:34)
[2017-03-28] MEDS: CYANOCOBALAMIN (VITAMIN B-12) 1,000 MCG TABLET PO SCH (10:24)
[2017-03-28] MEDS: THIAMINE HCL 100 MG TABLET PO SCH (10:24)
[2017-03-28] MEDS: ENOXAPARIN SODIUM INJ 40 MG/0.4 ML DISP.SYRIN SUBCUT SCH (10:24)
[2017-03-28] MEDS: FOLIC ACID 1 MG TABLET PO SCH (10:24)
[2017-03-28] MEDS: MULTIVITAMIN TABLET PO SCH (10:24)
[2017-03-28] MEDS: FLUOXETINE HCL 20 MG CAPSULE PO SCH (10:24)
[2017-03-28] MEDS: ASPIRIN 325 MG TABLET, ENT COATED PO SCH (10:24)
[2017-03-28] MEDS: HALOPERIDOL 2 MG TABLET PO SCH ×2 (10:25→23:36)
[2017-03-28] MEDS: LORAZEPAM 1 MG TABLET PO SCH ×2 (11:03→23:34)
[2017-03-28] MEDS: METOPROLOL TARTRATE 25 MG TABLET PO SCH ×2 (11:03→23:37)
--- NOTE | 2017-03-28 18:45 | PDOC TRANSFER SUMMARY ---
General - Admit/Disc Date/PCP Admission Date/Primary Care Provider: 03/22/17 04:55 COURTNEY PATEL MD Discharge Date: 03/29/17 - Discharge Diagnosis (1) Cellulitis of right upper extremity Is this a current diagnosis for this admission?: Yes (2) Rhabdomyolysis Is this a current diagnosis for this admission?: Yes (3) Hemiparesis affecting right side as late effect of cerebrovascular accident (CVA) Is this a current diagnosis for this admission?: Yes - Additional Information Home Medications: Acetaminophen [Tylenol 325 mg Tablet] 650 mg PO Q4HP PRN 03/22/17 Acetaminophen [Tylenol 325 mg Tablet] 650 mg PO Q8 03/22/17 Aspirin [Ecotrin 325 mg EC Tablet] 325 mg PO DAILY 03/22/17 Cyanocobalamin (Vitamin B-12) [Vitamin B-12 1000 mcg Tablet] 1,000 mcg PO DAILY 03/22/17 Fluoxetine HCl [Prozac 20 mg Capsule] 20 mg PO DAILY 03/22/17 Folic Acid [Folvite 1 mg Tablet] 1 mg PO DAILY 03/22/17 Gabapentin [Neurontin] 600 mg PO Q8 03/22/17 Haloperidol [Haldol 2 mg Tablet] 2 mg PO Q12 03/22/17 Lorazepam [Ativan 1 mg Tablet] 1 mg PO Q12 03/22/17 Melatonin [Melatonin 3 mg Tablet] 3 mg PO QHS 03/22/17 Metoprolol Tartrate [Lopressor 25 mg Tablet] 25 mg PO Q12 03/22/17 Multivitamin [Tab-A-Elizabeth (Multiple Vitamin) Tablet] 1 tab PO DAILY 03/22/17 Nitroglycerin [Nitrostat] 0.4 mg PO Q5MP PRN 03/22/17 Pantoprazole Sodium [Protonix] 20 mg PO DAILY 03/22/17 Simvastatin [Zocor 20 mg Tablet] 20 mg PO QHS 03/22/17 Thiamine HCl [Thiamine 100 mg Tablet] 100 mg PO DAILY 03/22/17 History of Present Illness Admission Date/PCP: 03/22/17 04:55 COURTNEY PATEL MD History of Present Illness: CHAPO MCKEON JR is a 61 year old male, resident of assisted living facility, yesterday, he was transferred to the emergency room from the assisted living facility for evaluation of 3 day history of fever, in the ER he was evaluated he was found to have leukocytosis but there was no localizing source of infection that was apparent but he had a blood culture drawn yesterday when he came to the emergency room for evaluation. The emergency room physician discussed the case with me yesterday and we are agreed that he could be discharged back to the facility and that he come to the office for follow-up or if there is a change in his condition he will be admitted to the hospital for management .He was called from the assisted living facility today because of positive blood culture, no specific organism is yet identified. When I saw patient he has cellulitis of the right upper extremities very extensive up to the neck. Patient is a very poor historian he has CVA with residual dysphasia and right-sided weakness, the blood work also suggests rhabdomyolysis with severely elevated CPK. History taking is a challenge with this patient because of the expressive dysphasia he does not communicate effectively he does not answer questions appropriately. Patient looks very unkempt, with very poor dentition ,he smells of urine, he is probably urinary incontinence he has adult brief in place. Hospital Course Hospital Course: He was admitted for the management of cellulitis affecting the right upper extremities, rhabdomyolysis, he was treated with IV antibiotic Unasyn and IV fluid. His CPK was elevated with IV fluid therapy CPK improved significantly. Physical Exam Vital Signs: Temp Pulse Resp BP Pulse Ox 98.0 F 57 L 17 110/70 96 03/28/17 15:42 03/28/17 15:42 03/28/17 15:42 03/28/17 15:42 03/28/17 15:42 Intake & Output 03/27/17 03/28/17 03/29/17 06:59 06:59 06:59 Intake Total 1228 336 118 Balance 1228 336 118 Weight 69 kg 68.7 kg General appearance: PRESENT: no acute distress Head exam: PRESENT: atraumatic Eye exam: PRESENT: PERRLA Respiratory exam: PRESENT: clear to auscultation sayra Cardiovascular exam: PRESENT: RRR Pulses: PRESENT: normal dorsalis pedis pul Vascular exam: PRESENT: normal capillary refill GI/Abdominal exam: PRESENT: normal bowel sounds, soft Rectal exam: PRESENT: deferred Extremities exam: PRESENT: full ROM Neurological exam: PRESENT: alert, other - Right hemiplegia Psychiatric exam: PRESENT: appropriate affect, normal mood Skin exam: PRESENT: dry, intact, warm Results Laboratory Results: 03/25/17 04:32 03/25/17 04:32 03/22/17 03/22/17 03/22/17 09:04 09:04 10:50 Creatine Kinase 1023 H CK-MB (CK-2) Cancelled 5.94 H Troponin I Cancelled 1.810 03/22/17 03/22/17 03/22/17 15:00 15:00 20:43 Creatine Kinase 760 H 628 H CK-MB (CK-2) 5.72 H Troponin I 1.700 03/22/17 20:43 Creatine Kinase CK-MB (CK-2) 4.92 H Troponin I 1.250 Impressions: Chest X-Ray 03/22/17 02:25 IMPRESSION: 1. No acute pulmonary process identified.
--- NOTE | 2017-03-28 18:46 | PDOC PROGRESS REPORT ---
Subjective Progress Note for:: 03/28/17 Subjective:: Patient is alert, he be discharged back to assisted living facility in the morning Reason For Visit: RHABDOMYOLYSIS,POSITIVE BLOOD CULTURE,ELEVATED Physical Exam Vital Signs: Temp Pulse Resp BP Pulse Ox 98.0 F 57 L 17 110/70 96 03/28/17 15:42 03/28/17 15:42 03/28/17 15:42 03/28/17 15:42 03/28/17 15:42 Intake & Output 03/27/17 03/28/17 03/29/17 06:59 06:59 06:59 Intake Total 1228 336 118 Balance 1228 336 118 Weight 69 kg 68.7 kg General appearance: PRESENT: no acute distress, well-developed, well-nourished Head exam: PRESENT: atraumatic, normocephalic Eye exam: PRESENT: conjunctiva pink, EOMI, PERRLA Ear exam: PRESENT: normal external ear exam Mouth exam: PRESENT: moist, tongue midline Neck exam: PRESENT: full ROM Respiratory exam: PRESENT: clear to auscultation sayra Cardiovascular exam: PRESENT: RRR, +S1, +S2 Vascular exam: PRESENT: normal capillary refill GI/Abdominal exam: PRESENT: normal bowel sounds, soft Rectal exam: PRESENT: deferred Neurological exam: PRESENT: alert Psychiatric exam: PRESENT: appropriate affect, normal mood Skin exam: PRESENT: dry, intact, warm Results Laboratory Results: 03/25/17 04:32 03/25/17 04:32 03/22/17 03/22/17 03/22/17 09:04 09:04 10:50 Creatine Kinase 1023 H CK-MB (CK-2) Cancelled 5.94 H Troponin I Cancelled 1.810 03/22/17 03/22/17 03/22/17 15:00 15:00 20:43 Creatine Kinase 760 H 628 H CK-MB (CK-2) 5.72 H Troponin I 1.700 03/22/17 20:43 Creatine Kinase CK-MB (CK-2) 4.92 H Troponin I 1.250 Impressions: Chest X-Ray 03/22/17 02:25 IMPRESSION: 1. No acute pulmonary process identified. Assessment & Plan - Diagnosis (1) Cellulitis of right upper extremity Is this a current diagnosis for this admission?: Yes (2) Rhabdomyolysis Qualifiers: Rhabdomyolysis type: traumatic Encounter type: initial encounter Qualified Code(s): T79.6XXA - Traumatic ischemia of muscle, initial encounter Is this a current diagnosis for this admission?: Yes (3) Hemiparesis affecting right side as late effect of cerebrovascular accident (CVA) Is this a current diagnosis for this admission?: Yes
[2017-03-28] MEDS: MELATONIN 3 MG TABLET PO SCH (23:34)
[2017-03-28] MEDS: SIMVASTATIN 10 MG TABLET PO SCH (23:35)
[2017-03-29] MEDS: ACETAMINOPHEN 325 MG TABLET PO SCH ×2 (05:35→17:58)
[2017-03-29] MEDS: LANSOPRAZOLE 15 MG TAB.RAP.DR PO SCH (05:35)
[2017-03-29] MEDS: GABAPENTIN 300 MG CAPSULE PO SCH ×2 (05:36→17:57)
[2017-03-29] MEDS: AMPICILLIN SODIUM/SULBACTAM NA 3 GM in NORMAL SALINE 100 ML IV SCH (05:36)
[2017-03-29] MEDS: ASPIRIN 325 MG TABLET, ENT COATED PO SCH (12:04)
[2017-03-29] MEDS: THIAMINE HCL 100 MG TABLET PO SCH (12:04)
[2017-03-29] MEDS: HALOPERIDOL 2 MG TABLET PO SCH (12:04)
[2017-03-29] MEDS: FLUOXETINE HCL 20 MG CAPSULE PO SCH (12:05)
[2017-03-29] MEDS: CYANOCOBALAMIN (VITAMIN B-12) 1,000 MCG TABLET PO SCH (12:05)
[2017-03-29] MEDS: MULTIVITAMIN TABLET PO SCH (12:05)
[2017-03-29] MEDS: ENOXAPARIN SODIUM INJ 40 MG/0.4 ML DISP.SYRIN SUBCUT SCH (12:05)
[2017-03-29] MEDS: FOLIC ACID 1 MG TABLET PO SCH (12:05)
[2017-03-29] MEDS: LORAZEPAM 1 MG TABLET PO SCH (12:19)
[2017-03-29] MEDS: METOPROLOL TARTRATE 25 MG TABLET PO SCH (12:19)
[2017-03-29 16:42] VITALS: BP 132/83
== END 2017-03-29 19:00 | DRG 603 ==
LOC: ER 02:17 → EH 04:55 → OBSVTOIN 04:55 → INTOOBSV 04:55 → EH 11:17 → 5 15:36
PROVIDERS: ADMIT Internal Medicine; ATTEND Internal Medicine
DX: L03.113 Cellulitis of right upper limb (principal); M62.82 Rhabdomyolysis; I69.351 Hemiplegia and hemiparesis following cerebral infarction affecting right dominant side; I69.321 Dysphasia following cerebral infarction; R46.0 Very low level of personal hygiene; I10 Essential (primary) hypertension; K21.9 Gastro-esophageal reflux disease without esophagitis; F03.90 Unspecified dementia, unspecified severity, without behavioral disturbance, psychotic disturbance, mood disturbance, and anxiety; F32.9 Major depressive disorder, single episode, unspecified; F17.200 Nicotine dependence, unspecified, uncomplicated; E78.5 Hyperlipidemia, unspecified
CPT/HCPCS: 36415; 51702; 71045; 80048; 80053; 80076; 81001; 82140; 82550; 82553; 82570; 82803; 82962; 83036; 83605; 83690; 84156; 84439; 84443; 84484; 85025; 85610; 87040; 87077; 87086; 87186; 87804; 93005; 93010; 96360; 96361; 99284; 99291; G0378; J0295; J0692; J1650; J3370; J3480; J3490; J7030